=== PATIENT | male | born 1985 | race Caucasian/White ===

== ENCOUNTER 2022-03-20 04:06 | Emergency (ER) | payer SELFPAY ==
[2022-03-20] MEDS ORDERED: LORazepam 2 MG/ML SDV IVPUSH STA ×2 (04:57→05:31)
[2022-03-20] MEDS ORDERED: Thiamine 200 MG/2 ML MDV IVPUSH STA (04:57)
[2022-03-20] MEDS ORDERED: Sodium Chloride 0.9% 1,000 ML IV SCH (05:00)
[2022-03-20] MEDS ORDERED: Sodium Chloride 0.9% 10 ML Syringe FLUSH PRN (05:05)
[2022-03-20 05:16] LABS: ESTIMATED GFR 117 mL/min (>60)
[2022-03-20 05:22] LABS: ACETAMINOPHEN < 2 ug/mL (<2)
== END 2022-03-20 14:32 | disposition home or self-care (01) ==
LOC: FB.ED 04:06
DX: T38.0X2A Poisoning by glucocorticoids and synthetic analogues, intentional self-harm, initial encounter (principal); F31.9 Bipolar disorder, unspecified; F10.929 Alcohol use, unspecified with intoxication, unspecified; Z72.0 Tobacco use
CPT/HCPCS: 36415; 80053; 80143; 80179; 80307; 82150; 83690; 85025; 96361; 96374; 96375; 99284-25; A9270-GY; J2060; J3411; J3490; J7030

== ENCOUNTER 2022-05-03 11:12 | Emergency (ER) | payer MEDICAID ==
[2022-05-03] MEDS ORDERED: Sodium Chloride 0.9% 1,000 ML IV ONE (11:27)
[2022-05-03] MEDS ORDERED: Aspirin 81 MG Tab.Chew PO ONE (11:27)
[2022-05-03] MEDS ORDERED: Labetalol 20 MG/4 ML Syringe IVPUSH ONE (11:28)
[2022-05-03] MEDS ORDERED: Thiamine 100 MG in Sodium Chloride 0.9% 50 ML IV ONE (11:28)
[2022-05-03] MEDS ORDERED: Folic Acid 50 MG/10 ML MDV IV STA (11:32)
[2022-05-03 12:03] LABS: ESTIMATED GFR 117 mL/min (>60)
[2022-05-03 12:33] LABS: CORONAVIRUS COVID-19 NAA NEGATIVE (NEGATIVE)
[2022-05-03] MEDS ORDERED: Folic Acid/Vitamin B Complex With C Cap PO SCH (13:15)
[2022-05-03] MEDS ORDERED: Folic Acid 1 MG Tab ONE (13:25)
[2022-05-03] MEDS ORDERED: Folic Acid 1 MG Tab PO ONE (13:27)
== END 2022-05-03 14:15 | disposition home or self-care (01) ==
LOC: FB.ED 11:12
DX: F41.9 Anxiety disorder, unspecified (principal); F10.129 Alcohol abuse with intoxication, unspecified; F31.9 Bipolar disorder, unspecified; R00.0 Tachycardia, unspecified; I10 Essential (primary) hypertension; R74.01 Elevation of levels of liver transaminase levels; Y90.6 Blood alcohol level of 120-199 mg/100 ml; Z20.822 Contact with and (suspected) exposure to COVID-19
CPT/HCPCS: 0241U; 36415; 71045; 80053; 80307; 83690; 83735; 84484; 85025; 85379; 93005; 93010; 96365; 96366; 96375; 99283; 99285-25; A9270-GY; J3411; J3490; J7030